=== PATIENT | female | born 1990 | race Caucasian/White ===

== ENCOUNTER 2017-03-01 20:07 | Emergency (ER) | payer OTHER ==
[2017-03-01 20:49] VITALS: BP 134/59
== END 2017-03-01 20:49 | disposition home or self-care (01) ==
LOC: ED 20:07
DX: H66.92 Otitis media, unspecified, left ear (principal); R03.0 Elevated blood-pressure reading, without diagnosis of hypertension; H92.01 Otalgia, right ear

== ENCOUNTER 2017-05-28 22:43 | Emergency (ER) | payer OTHER ==
[2017-05-29 01:39] VITALS: BP 140/91
== END 2017-05-29 01:39 | disposition home or self-care (01) ==
LOC: ED 22:43
DX: S01.511A Laceration without foreign body of lip, initial encounter (principal); S13.4XXA Sprain of ligaments of cervical spine, initial encounter; S09.90XA Unspecified injury of head, initial encounter; F10.129 Alcohol abuse with intoxication, unspecified; W50.0XXA Accidental hit or strike by another person, initial encounter; Y93.89 Activity, other specified; Y99.8 Other external cause status; Y92.89 Other specified places as the place of occurrence of the external cause
CPT/HCPCS: J2001; J2270; Q0162

== ENCOUNTER 2017-07-21 10:12 | Emergency (ER) | payer OTHER ==
[~2017-07-21] VITALS: Ht 157.5 cm; Wt 63.8 kg
[2017-07-21 10:26] VITALS: BP 114/84
== END 2017-07-21 11:02 | disposition home or self-care (01) ==
LOC: ED 10:12
DX: S60.451A Superficial foreign body of left index finger, initial encounter (principal); W45.8XXA Other foreign body or object entering through skin, initial encounter; Y93.89 Activity, other specified; Y92.89 Other specified places as the place of occurrence of the external cause; Y99.8 Other external cause status
CPT/HCPCS: J2001

== ENCOUNTER 2017-08-30 21:24 | Emergency (ER) | payer OTHER ==
[2017-08-30 21:37] VITALS: BP 111/77
== END 2017-08-30 23:13 | disposition home or self-care (01) ==
LOC: ED 21:24
DX: H66.93 Otitis media, unspecified, bilateral (principal)

== ENCOUNTER 2018-02-28 22:07 | Emergency (ER) | payer OTHER ==
[~2018-02-28] VITALS: Ht 157.5 cm; Wt 63.0 kg
[2018-02-28 22:08] VITALS: Ht 157.5 cm; Wt 63.0 kg
[2018-02-28 23:36] LABS: microscopic required? NO
[2018-02-28 23:38] LABS: BASOPHIL % 0.7 % (0-2); PLATELET COUNT 276 x10^3mcL (130-400)
[2018-02-28 23:48] LABS: CALCIUM 8.1 mg/dL (8.5-10.1); CHLORIDE SERUM 109 mmol/L (98-107); CREATININE SERUM 0.6 mg/dL (0.6-1.0); GFR1 > 60 mL/min; GLUCOSE SERUM 70 mg/dL (74-106); POTASSIUM SERUM 3.8 mmol/L (3.5-5.1); SODIUM SERUM 143 mmol/L (136-145)
[2018-02-28 23:50] LABS: RED CELL DISTRIBUTION WIDTH 16.2 % (11.5-14.5)
[2018-03-01 00:04] LABS: ALKALINE PHOSPHATASE 76 U/L (46-116); ALT/SGPT 16 U/L (14-59); AST/SGOT 14 U/L (15-37); BILIRUBIN TOTAL 0.1 mg/dL (0.20-1.00); HDL CHOLESTEROL 44 mg/dL (40-60); LIPASE 123 IU/L (73-393); TOTAL PROTEIN, SERUM 6.5 g/dL (6.4-8.2); TRIGLYCERIDES 35 mg/dL (<150)
[2018-03-01 00:08] LABS: urine erythrocyte NEGATIVE (NEGATIVE)
[2018-03-01 00:09] LABS: ALBUMIN 3.2 g/dL (3.4-5.0); CHOLESTEROL 117 mg/dL (<200); CHOLESTEROL/HDL RATIO 2.7
[2018-03-01 00:15] LABS: FREE T4 0.76 ng/dL (0.76-1.46); FREE THYROXINE INDEX 1.7 ug/dL (1.4-4.5); T4(THYROXINE) 5.4 ug/dL (4.7-13.3)
[2018-03-01 00:25] LABS: T3 TOTAL 0.84 ng/mL
[2018-03-01 00:57] VITALS: BP 95/61
== END 2018-03-01 00:57 | disposition home or self-care (01) ==
LOC: ED 22:07
PROVIDERS: Specialist
DX: F15.10 Other stimulant abuse, uncomplicated (principal); F41.9 Anxiety disorder, unspecified; E16.1 Other hypoglycemia; F17.200 Nicotine dependence, unspecified, uncomplicated
CPT/HCPCS: 83880; 84439; J3490; J7030

== ENCOUNTER 2018-05-08 20:00 | Emergency (ER) | payer OTHER ==
[~2018-05-08] VITALS: Ht 157.5 cm; Wt 58.5 kg
[2018-05-08 20:04] VITALS: Ht 157.5 cm; Wt 58.5 kg
[2018-05-08 20:41] VITALS: BP 122/70
== END 2018-05-08 20:41 | disposition home or self-care (01) ==
LOC: ED 20:00
DX: L30.9 Dermatitis, unspecified (principal); R03.0 Elevated blood-pressure reading, without diagnosis of hypertension

== ENCOUNTER 2018-06-08 01:32 | Emergency (ER) | payer OTHER ==
[~2018-06-08] VITALS: Ht 157.5 cm; Wt 59.4 kg
[2018-06-08 01:47] VITALS: Ht 157.5 cm; Wt 59.4 kg
[2018-06-08 02:14] VITALS: BP 139/86
== END 2018-06-08 02:14 | disposition home or self-care (01) ==
LOC: ED 01:32
DX: L65.9 Nonscarring hair loss, unspecified (principal); Z86.2 Personal history of diseases of the blood and blood-forming organs and certain disorders involving the immune mechanism

== ENCOUNTER 2020-06-02 22:01 | Emergency (ER) | payer SELFPAY ==
[~2020-06-02] VITALS: Ht 157.5 cm; Wt 77.1 kg
[2020-06-02 22:04] VITALS: BP 117/85; Ht 157.5 cm; Wt 77.1 kg
== END 2020-06-03 00:11 | disposition home or self-care (01) ==
LOC: ED 22:01
DX: J02.8 Acute pharyngitis due to other specified organisms (principal); Z20.828 Contact with and (suspected) exposure to other viral communicable diseases; Z98.890 Other specified postprocedural states; Z86.2 Personal history of diseases of the blood and blood-forming organs and certain disorders involving the immune mechanism
CPT/HCPCS: U0003-CS

== ENCOUNTER 2020-09-10 22:20 | Emergency (ER) | payer SELFPAY ==
[~2020-09-10] VITALS: Ht 162.6 cm; Wt 71.2 kg
[2020-09-10 22:40] VITALS: BP 130/91; Ht 162.6 cm; Wt 71.2 kg
== END 2020-09-10 23:15 | disposition home or self-care (01) ==
LOC: ED 22:20
DX: H92.03 Otalgia, bilateral (principal); H92.13 Otorrhea, bilateral; Z98.890 Other specified postprocedural states